=== PATIENT | male | born 1960 | race Two or more races ===

== ENCOUNTER 2021-06-23 10:26 | Outpatient (REF) | payer OTHER, SELFPAY ==
[2021-06-23 12:07] LABS: Vitamin B12 461 pg/mL (200-900)
[2021-06-23 12:11] LABS: Syphilis Screen Nonreactive (Nonreactive)
[2021-06-24 08:36] LABS: Lyme Abs Screen <0.90 index
== END 2021-06-23 10:27 | disposition home or self-care (01) ==
LOC: HO.LAB 10:26
PROVIDERS: PCP Internal Medicine; Visit Provider Psychiatry & Neurology Neurology
DX: G31.84 Mild cognitive impairment of uncertain or unknown etiology (principal)
CPT/HCPCS: 36415; 82607; 86617; 86618; 86780